=== PATIENT | female | born 1980 | race African-American/Black ===

== ENCOUNTER 2024-09-24 22:07 | Emergency (ER) | payer BC ==
[~2024-09-24] VITALS: Ht 160 cm; Wt 103.0 kg
[2024-09-24 22:12] VITALS: PULSE 80; RESP 18; TEMP 98.6
[2024-09-24] MEDS ORDERED: KETOROLAC TROMETHAMINE 30 MG/ML VIAL ONE (22:16)
[2024-09-24] MEDS: KETOROLAC TROMETHAMINE 30 MG/ML VIAL IM STA (22:20)
[2024-09-24 23:43] LABS: CLARITY,URINE CLEAR (CLEAR); COLOR,URINE YELLOW (YELLOW); GLUCOSE, URINE NEGATIVE (NEGATIVE); LEUKOCYTE ESTERASE ,URINE NEGATIVE (NEGATIVE); NITRITE,URINE NEGATIVE (NEGATIVE); PH,URINE 5.5 (5 - 7); PROTEIN,URINE DIPSTICK NEGATIVE (NEGATIVE)
[2024-09-24 23:44] LABS: BILIRUBIN,URINE NEGATIVE (NEGATIVE); KETONES,URINE NEGATIVE (NEGATIVE); PREGNANCY TEST, URINE NEGATIVE (NEGATIVE); URINE UROBILINOGEN 0.2 mg/dL (0.2 - 1)
[2024-09-25 00:58] LABS: BACTERIA,URINE MODERATE /HPF; EPITHELIAL CELLS,URINE MODERATE /LPF; RBC,URINE 0-5 /HPF (0-5)
[2024-09-25] MEDS ORDERED: CEFDINIR300 MG PO (01:40)
[2024-09-25 01:46] VITALS: BP 141/95; PULSE 65; RESP 18; TEMP 98.8; O2SAT 98
== END 2024-09-25 01:45 | disposition home or self-care (01) ==
LOC: ER 22:13
DX: M54.50 Low back pain, unspecified (principal); N39.0 Urinary tract infection, site not specified; Z98.84 Bariatric surgery status
CPT/HCPCS: 74176; 81001; 81025; 99284; J1885